=== PATIENT | male | born 1995 | race Caucasian/White ===

== ENCOUNTER 2018-10-28 16:54 | Emergency (ER) | payer OTHER | END 2018-10-28 17:56 | disposition left against medical advice (07) | LOC: EMS 16:54 | DX: K92.1 Melena (principal); Z53.21 Procedure and treatment not carried out due to patient leaving prior to being seen by health care provider ==

== ENCOUNTER 2021-09-23 11:20 | Emergency (ER) | payer MEDICAID, OTHER ==
[~2021-09-23] VITALS: Ht 180.3 cm; Wt 61.4 kg
[2021-09-23 11:29] VITALS: BP 109/64
[2021-09-23] MEDS: IBUPROFEN 800 MG TABLET PO ONE (12:23)
[2021-09-23] MEDS ORDERED: NAPR-1025 PO (14:10)
== END 2021-09-23 14:29 | disposition home or self-care (01) ==
LOC: EMS 11:20
DX: S30.0XXA Contusion of lower back and pelvis, initial encounter (principal); V86.99XA Unspecified occupant of other special all-terrain or other off-road motor vehicle injured in nontraffic accident, initial encounter; Y93.89 Activity, other specified; Y92.89 Other specified places as the place of occurrence of the external cause; Y99.8 Other external cause status
CPT/HCPCS: 72072; 72100; 99284; Z7502; Z7610

== ENCOUNTER 2025-01-22 13:52 | Emergency (ER) | payer MEDICAID ==
[~2025-01-22] VITALS: Ht 177.8 cm; Wt 63.6 kg
[~2025-01-22 13:52] MED LIST: NAPR-1196 PO
[2025-01-22 13:58] VITALS: TEMP 97
[2025-01-22 14:33] LABS: CALCIUM, TOTAL 9.6 mg/dL (8.8-10.5); CREATININE 1.06 mg/dL (0.60-1.30); GLOMERULAR FILTR. RATE CALC > 60 mL/min (>60); GLUCOSE,RANDOM 112 mg/dL (70-110); SODIUM SERUM 140 mmol/L (136-145); UREA NITROGEN, BLOOD 20 mg/dL (7-18)
[2025-01-22 14:35] LABS: APPEARANCE,URINE TURBID (CLEAR); GLUCOSE, URINE (UA) NEGATIVE (NEGATIVE); LEUKOCYTE ESTERASE ,URINE NEGATIVE (NEGATIVE); NITRATE,URINE NEGATIVE (NEGATIVE); OCCULT BLOOD,URINE NEGATIVE (NEGATIVE); SPECIFIC GRAVITIY, URINE 1.027 (1.003-1.030)
[2025-01-22 14:36] LABS: PLATELET COUNT (AUTO) 256 K/uL (150-450); RED BLOOD CELL COUNT(AUTO) 5.66 MIL/uL (4.50-5.90); RED CELL DISTRIBUTION WIDTH 14.4 % (11.5-14.5); WHITE BLOOD COUNT (AUTO) 12.6 K/uL (4.5-11.0)
[2025-01-22] MEDS: ONDANSETRON HCL 4 MG/2 ML VIAL IVP ONE (15:32)
[2025-01-22] MEDS: SODIUM CHLORIDE 0.9% 1,000 ML IV ONE (15:33)
[2025-01-22] MEDS: KETOROLAC TROMETHAMINE 30 MG/ML VIAL IVP ONE (15:33)
[2025-01-22 15:44] VITALS: BP 115/55; PULSE 51; RESP 16; O2SAT 96
[2025-01-22] MEDS ORDERED: IBUP-1554 PO (16:29)
[2025-01-22] MEDS ORDERED: MAG30ORA11 PO (16:29)
[2025-01-22] MEDS ORDERED: ONDA-104 PO (16:29)
== END 2025-01-22 17:00 | disposition home or self-care (01) ==
LOC: EMS 13:56
DX: K29.20 Alcoholic gastritis without bleeding (principal); R11.10 Vomiting, unspecified
CPT/HCPCS: 99284; 96374; 96375; 80048; 81003; 83690; 85025; 36415; J1885; G0480; J2405; J7030

== ENCOUNTER 2025-05-06 22:34 | Emergency (ER) | payer MEDICAID ==
[~2025-05-06] VITALS: Ht 177.8 cm; Wt 63.6 kg
[~2025-05-06 22:34] MED LIST changes: +IBUP-1554 PO; +MAG30ORA11 PO; -NAPR-1196 PO; +ONDA-104 PO
[2025-05-07 00:49] LABS: PLATELET COUNT (AUTO) 232 K/uL (150-450); RED BLOOD CELL COUNT(AUTO) 5.33 MIL/uL (4.50-5.90); RED CELL DISTRIBUTION WIDTH 14.1 % (11.5-14.5); WHITE BLOOD COUNT (AUTO) 11.9 K/uL (4.5-11.0)
[2025-05-07] MEDS: ONDANSETRON HCL 4 MG/2 ML VIAL IVP ONE (00:53)
[2025-05-07] MEDS: SODIUM CHLORIDE 0.9% 1,000 ML IV ONE (00:53)
[2025-05-07] MEDS: FAMOTIDINE 20 MG/2 ML VIAL IVP ONE (00:53)
[2025-05-07 01:01] LABS: CALCIUM, TOTAL 9.6 mg/dL (8.8-10.5); CREATININE 0.85 mg/dL (0.60-1.30); GLOMERULAR FILTR. RATE CALC > 60 mL/min (>60); GLUCOSE,RANDOM 136 mg/dL (70-110); SODIUM SERUM 139 mmol/L (136-145); UREA NITROGEN, BLOOD 20 mg/dL (7-18)
[2025-05-07] MEDS ORDERED: ONDA-104 PO (01:46)
[2025-05-07 02:33] VITALS: BP 121/64; PULSE 66; RESP 20; TEMP 97.3; O2SAT 100
== END 2025-05-07 02:59 | disposition home or self-care (01) ==
LOC: EMS 22:35
DX: K29.20 Alcoholic gastritis without bleeding (principal); F10.229 Alcohol dependence with intoxication, unspecified; F12.90 Cannabis use, unspecified, uncomplicated; F17.210 Nicotine dependence, cigarettes, uncomplicated; Y90.9 Presence of alcohol in blood, level not specified
CPT/HCPCS: 99284; 80048; 83735; 85025; 36415; 96374; 96361; 96375; J3490; J2405; J7030